=== PATIENT | male | born 1955 | race Two or more races ===

== ENCOUNTER 2017-11-04 14:08 | Emergency (ER) | payer MEDICAID, OTHER ==
[~2017-11-04] VITALS: Ht 172.7 cm; Wt 56.3 kg
[2017-11-04 17:40] VITALS: BP 152/91
== END 2017-11-04 18:00 | disposition home or self-care (01) ==
LOC: ER 14:12
DX: M19.012 Primary osteoarthritis, left shoulder (principal); M25.552 Pain in left hip; W01.0XXA Fall on same level from slipping, tripping and stumbling without subsequent striking against object, initial encounter; Y93.89 Activity, other specified; Y92.811 Bus as the place of occurrence of the external cause; Y99.8 Other external cause status
CPT/HCPCS: 73030; 73502; 93005

== ENCOUNTER 2020-09-05 11:04 | Inpatient (IN) | payer MEDICARE, MEDICAID ==
[~2020-09-05] VITALS: Ht 177.8 cm; Wt 59.0 kg
[2020-09-05 11:55] LABS: Basophils # (auto) 0 10 ^3/uL (0-0.2); Basophils % (auto) 0.1 % (0.0-2.0); Eosinophils # (auto) 0 10 ^3/uL (0-0.8); Hemoglobin 12.4 g/dL (13.5-17.5); Monocytes # (auto) 0.7 10 ^3/uL (0-1.3)
[2020-09-05 11:57] LABS: Lymphocytes # (auto) 0.6 10 ^3/uL (0.4-5.4); Lymphocytes % (auto) 5.6 % (10.0-50.0); Mean Corpuscular Hemoglobin 33.9 pg (28.0-32.0); Mean Corpuscular Hgb Conc. 35.5 g/dL (32.0-36.0); Mean Corpuscular Volume 95.5 fL (80.0-100.0); Monocytes % (auto) 6.5 % (0.0-12.0); Neutrophils # (auto) 9.7 10 ^3/uL (1.6-8.6); Neutrophils % (auto) 87.8 % (37.0-80.0); Nucleated Red Blood Cells % 0.1 %; Platelet Count (auto) 24 10^3/uL (140-450); Red Blood Cells 3.67 10^6/uL (4.5-5.90); Red Cell Distribution Width 16.8 % (11.8-14.3); White Blood Cell 11.1 10^3/uL (4.4-10.8)
[2020-09-05 12:21] LABS: Albumin 2.2 g/dL (3.4-5.0); Anion Gap 12 (5-15); Calcium 7.7 mg/dL (8.5-10.1); Carbon Dioxide 17 mmol/L (21-32); Chloride 107 mmol/L (98-107); Glucose 102 mg/dL (74-106); Magnesium 2.8 mg/dL (1.6-2.6); Potassium 3.2 mmol/L (3.5-5.1); Sodium 136 mmol/L (136-145)
[2020-09-05 12:21] LABS: Alcohol, Urine < 3.0 mg/dL (0-10); Amphetamine Screen, Urine POSITIVE (NEGATIVE); Barbiturate Scree,Urine NEGATIVE (NEGATIVE); Benzodiazephine Screen, Urine NEGATIVE (NEGATIVE); Cannabinoid Screen, Urine NEGATIVE (NEGATIVE); Cocaine Screen, Urine NEGATIVE (NEGATIVE); Opiate Scree,Urine NEGATIVE (NEGATIVE); Phencyclidine Screen, Urine NEGATIVE (NEGATIVE)
[2020-09-05 12:28] LABS: Alanine Aminotransferase 47 U/L (16-61); Alkaline Phosphatase 141 U/L (45-117); Aspartate Aminotransferase 63 U/L (15-37); BUN/Creatinine Ratio 37.3; Bilirubin, Total 3.6 mg/dL (0.2-1.0); Blood Alcohol < 3.0 mg/dL (0-5); GFR African American 30 mL/min; GFR Non-African American 25 mL/min; Total Protein 7.2 g/dL (6.4-8.2)
[2020-09-05 12:29] LABS: Urine Bacteria FEW /hpf (None Seen); Urine Blood 3+ /uL (Negative); Urine Specific Gravity 1.012 (1.001-1.035); Urine WBC 57 /hpf (0 - 3)
[2020-09-05 12:39] LABS: Blood Urea Nitrogen 101 mg/dL (7-18)
[2020-09-05] MEDS ORDERED: cefTRIAXone 1GM/50ML D5W 50 ML IV ONE (12:45)
[2020-09-05] MEDS ORDERED: NITROGLYCERIN 0.4 MG SL TAB SL PRN (15:00)
[2020-09-05] MEDS ORDERED: MORPHINE SULF INJ 2 MG/ML SYRINGE 1ML IV PRN (15:00)
[2020-09-05] MEDS ORDERED: ACETAMINOPHEN 500 MG TAB PO PRN (15:00)
[2020-09-05] MEDS ORDERED: POTASSIUM EFFERVESENT TAB 25 MEQ PO ONE (15:00)
[2020-09-05] MEDS ORDERED: ONDANSETRON HCL 4 MG/2 ML VIAL IV PRN (15:00)
[2020-09-05] MEDS ORDERED: LABETALOL HCL 5 MG/ML 4ML SYRINGE IV PRN (16:00)
[2020-09-05] MEDS: LACTULOSE 20Gm/30ML SOLN PO SCH (23:35)
[2020-09-05] MEDS: SODIUM CHLORIDE 0.9% 1,000 ML IV SCH (23:35)
[2020-09-05] MEDS: rifAXIMin 550 MG TAB PO SCH (23:35)
[2020-09-06] MEDS: LACTULOSE 20Gm/30ML SOLN PO SCH ×3 (06:37→21:52)
[2020-09-06 09:24] VITALS: BP 195/97
[2020-09-06] MEDS: METHADONE HCL 10 MG TAB PO SCH (09:29)
[2020-09-06] MEDS: rifAXIMin 550 MG TAB PO SCH ×2 (09:30→21:53)
[2020-09-06] MEDS: cefTRIAXone 1GM/50ML D5W 50 ML IV SCH (09:30)
[2020-09-06] MEDS ORDERED: PANTOPRAZOLE 40 MG/10 ML VIAL INJ IV SCH (10:00)
[2020-09-06 10:03] LABS: Basophils # (auto) 0 10 ^3/uL (0-0.2); Basophils % (auto) 0.3 % (0.0-2.0); Eosinophils # (auto) 0.2 10 ^3/uL (0-0.8); Eosinophils % (auto) 2.8 % (0.0-7.0); Hemoglobin 14.1 g/dL (13.5-17.5); Lymphocytes # (auto) 0.7 10 ^3/uL (0.4-5.4); Lymphocytes % (auto) 10.5 % (10.0-50.0); Mean Corpuscular Hemoglobin 34.2 pg (28.0-32.0); Mean Corpuscular Hgb Conc. 35.2 g/dL (32.0-36.0); Mean Corpuscular Volume 97.3 fL (80.0-100.0); Monocytes # (auto) 1.1 10 ^3/uL (0-1.3); Monocytes % (auto) 16.5 % (0.0-12.0); Neutrophils # (auto) 4.6 10 ^3/uL (1.6-8.6); Neutrophils % (auto) 69.9 % (37.0-80.0); Nucleated Red Blood Cells % 0.1 %; Platelet Count (auto) 30 10^3/uL (140-450); Red Blood Cells 4.11 10^6/uL (4.5-5.90); Red Cell Distribution Width 17.4 % (11.8-14.3); White Blood Cell 6.6 10^3/uL (4.4-10.8)
[2020-09-06 10:12] LABS: Potassium 3.5 mmol/L (3.5-5.1)
[2020-09-06 10:15] LABS: BUN/Creatinine Ratio 40.3; Bilirubin, Total 2.7 mg/dL (0.2-1.0); Total Protein 6.9 g/dL (6.4-8.2)
[2020-09-06 13:00] VITALS: BP 163/86
[2020-09-06] MEDS ORDERED: amLODIPine BESYLATE 5 MG TAB PO ONE (13:45)
[2020-09-06] MEDS ORDERED: hydrALAZINE HCL 20 MG/ML VL IV PRN (13:45)
[2020-09-06] MEDS ORDERED: ALBUMIN 5% 250 ML IV ONE (14:45)
[2020-09-06 16:57] VITALS: BP 164/79
[2020-09-06 17:03] LABS: Alcohol, Urine < 3.0 mg/dL (0-10); Amphetamine Screen, Urine NEGATIVE (NEGATIVE); Barbiturate Scree,Urine NEGATIVE (NEGATIVE); Benzodiazephine Screen, Urine NEGATIVE (NEGATIVE); Cannabinoid Screen, Urine NEGATIVE (NEGATIVE); Cocaine Screen, Urine NEGATIVE (NEGATIVE); Opiate Scree,Urine NEGATIVE (NEGATIVE); Phencyclidine Screen, Urine NEGATIVE (NEGATIVE)
[2020-09-06] MEDS ORDERED: METO25TA5 PO (17:25)
[2020-09-06] MEDS ORDERED: HYDR-4296 PO (17:25)
[2020-09-06] MEDS ORDERED: FURO20TA3 PO (17:25)
[2020-09-06] MEDS ORDERED: FERR-20 PO (17:25)
[2020-09-06] MEDS ORDERED: PRAV20TA3 PO (17:25)
[2020-09-06] MEDS ORDERED: PHEN-1143 PO (17:25)
[2020-09-06] MEDS ORDERED: AMLO-489 PO (17:25)
[2020-09-06] MEDS: SODIUM CHLORIDE 0.9% 1,000 ML IV SCH (19:06)
[2020-09-06 19:51] LABS: INR 1.35 (0.9-1.15); Partial Thromboplastin Time 30.5 sec (23.0-31.2)
[2020-09-06] MEDS: metroNIDAZOLE 500MG/100ML 100 ML IV SCH (21:53)
[2020-09-06] MEDS: MORPHINE SULF INJ 2 MG/ML SYRINGE 1ML IV PRN (21:53)
[2020-09-06 22:01] VITALS: BP 132/71
[2020-09-07 05:10] VITALS: BP 134/65
[2020-09-07] MEDS: metroNIDAZOLE 500MG/100ML 100 ML IV SCH ×3 (06:38→21:39)
[2020-09-07] MEDS: LACTULOSE 20Gm/30ML SOLN PO SCH ×3 (06:39→21:39)
[2020-09-07] MEDS: MORPHINE SULF INJ 2 MG/ML SYRINGE 1ML IV PRN ×2 (06:45→21:41)
[2020-09-07] MEDS: SODIUM CHLORIDE 0.9% 1,000 ML IV SCH (06:48)
[2020-09-07 09:00] VITALS: BP 181/79
[2020-09-07] MEDS ORDERED: amLODIPine BESYLATE 5 MG TAB PO SCH (10:00)
[2020-09-07] MEDS: amLODIPine BESYLATE 5 MG TAB PO SCH (10:23)
[2020-09-07] MEDS: PANTOPRAZOLE 40 MG TAB PO SCH (10:23)
[2020-09-07] MEDS: METHADONE HCL 10 MG TAB PO SCH (10:25)
[2020-09-07] MEDS: rifAXIMin 550 MG TAB PO SCH ×2 (10:25→21:39)
[2020-09-07] MEDS: cefTRIAXone 1GM/50ML D5W 50 ML IV SCH (10:30)
[2020-09-07] MEDS ORDERED: CIPR750T3 PO (11:14)
[2020-09-07 13:00] VITALS: BP 134/71
[2020-09-07 13:29] LABS: Basophils # (auto) 0 10 ^3/uL (0-0.2); Basophils % (auto) 0.6 % (0.0-2.0); Eosinophils # (auto) 0 10 ^3/uL (0-0.8); Hematocrit 35.3 % (41.0-53.0); Lymphocytes # (auto) 0.5 10 ^3/uL (0.4-5.4); Lymphocytes % (auto) 11.8 % (10.0-50.0); Mean Corpuscular Hemoglobin 32.9 pg (28.0-32.0); Mean Corpuscular Hgb Conc. 33.9 g/dL (32.0-36.0); Monocytes # (auto) 0.5 10 ^3/uL (0-1.3); Monocytes % (auto) 10.7 % (0.0-12.0); Neutrophils # (auto) 3.5 10 ^3/uL (1.6-8.6); Neutrophils % (auto) 76.9 % (37.0-80.0); Nucleated Red Blood Cells % 0.1 %; Platelet Count (auto) 47 10^3/uL (140-450); Red Blood Cells 3.64 10^6/uL (4.5-5.90); Red Cell Distribution Width 16.8 % (11.8-14.3); White Blood Cell 4.5 10^3/uL (4.4-10.8)
[2020-09-07 13:43] LABS: Albumin 2.2 g/dL (3.4-5.0); Calcium 7.8 mg/dL (8.5-10.1); Potassium 3.4 mmol/L (3.5-5.1)
[2020-09-07 13:45] LABS: BUN/Creatinine Ratio 44.4
[2020-09-07 13:47] LABS: Bilirubin, Total 2.4 mg/dL (0.2-1.0); Total Protein 7.1 g/dL (6.4-8.2)
[2020-09-07 17:00] VITALS: BP 129/66
[2020-09-07 22:00] VITALS: BP 130/91
[2020-09-07] MEDS ORDERED: POTASSIUM EFFERVESENT TAB 25 MEQ PO ONE (22:00)
[2020-09-08] MEDS: LACTULOSE 20Gm/30ML SOLN PO SCH ×3 (06:25→22:50)
[2020-09-08] MEDS: metroNIDAZOLE 500MG/100ML 100 ML IV SCH ×3 (06:25→22:50)
[2020-09-08] MEDS: MORPHINE SULF INJ 2 MG/ML SYRINGE 1ML IV PRN ×2 (06:25→23:51)
[2020-09-08 09:00] VITALS: BP 182/89
[2020-09-08] MEDS: METHADONE HCL 10 MG TAB PO SCH (09:03)
[2020-09-08] MEDS: PANTOPRAZOLE 40 MG TAB PO SCH (09:03)
[2020-09-08] MEDS: cefTRIAXone 1GM/50ML D5W 50 ML IV SCH (09:12)
[2020-09-08] MEDS: rifAXIMin 550 MG TAB PO SCH ×2 (09:49→22:50)
[2020-09-08] MEDS: amLODIPine BESYLATE 5 MG TAB PO SCH (09:50)
[2020-09-08 10:15] LABS: BUN/Creatinine Ratio 41.9; Calcium 8.1 mg/dL (8.5-10.1); Potassium 3.6 mmol/L (3.5-5.1)
[2020-09-08] MEDS ORDERED: METHADONE HCL 10 MG TAB PO ONE (10:30)
[2020-09-08 13:00] VITALS: BP 137/77
[2020-09-08 17:00] VITALS: BP 125/90
[2020-09-08 22:00] VITALS: BP 141/86
[2020-09-09 05:00] VITALS: BP 142/77
[2020-09-09] MEDS: metroNIDAZOLE 500MG/100ML 100 ML IV SCH ×2 (07:12→14:38)
[2020-09-09] MEDS: LACTULOSE 20Gm/30ML SOLN PO SCH ×3 (07:12→21:37)
[2020-09-09 09:00] VITALS: BP 155/88
[2020-09-09] MEDS: cefTRIAXone 1GM/50ML D5W 50 ML IV SCH (09:23)
[2020-09-09] MEDS ORDERED: D5W 5% 1,000 ML IV ONE (09:30)
[2020-09-09] MEDS: rifAXIMin 550 MG TAB PO SCH ×2 (09:42→21:37)
[2020-09-09] MEDS: PANTOPRAZOLE 40 MG TAB PO SCH (09:42)
[2020-09-09] MEDS: amLODIPine BESYLATE 5 MG TAB PO SCH (09:43)
[2020-09-09] MEDS: METHADONE HCL 10 MG TAB PO SCH (09:44)
[2020-09-09 12:40] VITALS: BP 130/80
[2020-09-09 16:36] VITALS: BP 142/91
[2020-09-09] MEDS: MORPHINE SULF INJ 2 MG/ML SYRINGE 1ML IV PRN (17:03)
[2020-09-09] MEDS: metroNIDAZOLE 500 MG TAB PO SCH (21:37)
[2020-09-09 22:00] VITALS: BP 134/79
[2020-09-10 05:00] VITALS: BP 128/80
[2020-09-10 05:56] LABS: Basophils # (auto) 0 10 ^3/uL (0-0.2); Hemoglobin 10.7 g/dL (13.5-17.5); Lymphocytes # (auto) 1.1 10 ^3/uL (0.4-5.4); Monocytes # (auto) 0.5 10 ^3/uL (0-1.3); Nucleated Red Blood Cells % 0.1 %; Red Blood Cells 3.12 10^6/uL (4.5-5.90); White Blood Cell 7.2 10^3/uL (4.4-10.8)
[2020-09-10 05:59] LABS: Basophils % (auto) 0.5 % (0.0-2.0); Eosinophils # (auto) 0.1 10 ^3/uL (0-0.8); Eosinophils % (auto) 0.9 % (0.0-7.0); Hematocrit 30.5 % (41.0-53.0); Lymphocytes % (auto) 15.6 % (10.0-50.0); Mean Corpuscular Hemoglobin 34.2 pg (28.0-32.0); Mean Corpuscular Volume 97.8 fL (80.0-100.0); Monocytes % (auto) 6.7 % (0.0-12.0); Neutrophils # (auto) 5.5 10 ^3/uL (1.6-8.6); Neutrophils % (auto) 76.3 % (37.0-80.0); Platelet Count (auto) 41 10^3/uL (140-450); Red Cell Distribution Width 16.7 % (11.8-14.3)
[2020-09-10] MEDS: LACTULOSE 20Gm/30ML SOLN PO SCH ×3 (06:13→22:18)
[2020-09-10] MEDS: metroNIDAZOLE 500 MG TAB PO SCH ×3 (06:13→22:18)
[2020-09-10 06:16] LABS: Bilirubin, Total 1.3 mg/dL (0.2-1.0)
[2020-09-10 09:00] VITALS: BP 118/77
[2020-09-10] MEDS: cefTRIAXone 1GM/50ML D5W 50 ML IV SCH (09:35)
[2020-09-10] MEDS: METHADONE HCL 10 MG TAB PO SCH (09:36)
[2020-09-10] MEDS: rifAXIMin 550 MG TAB PO SCH ×2 (09:36→22:18)
[2020-09-10] MEDS: PANTOPRAZOLE 40 MG TAB PO SCH (09:36)
[2020-09-10] MEDS: amLODIPine BESYLATE 5 MG TAB PO SCH (09:40)
[2020-09-10 12:45] VITALS: BP 138/70
[2020-09-10] MEDS: MORPHINE SULF INJ 2 MG/ML SYRINGE 1ML IV PRN (14:14)
[2020-09-10 17:00] VITALS: BP 114/70
[2020-09-10 22:00] VITALS: BP 136/79
[2020-09-10] MEDS: traMADol HCL 50 MG TAB PO PRN (22:43)
[2020-09-11 05:00] VITALS: BP 119/73
[2020-09-11] MEDS: metroNIDAZOLE 500 MG TAB PO SCH ×3 (05:36→21:47)
[2020-09-11] MEDS: LACTULOSE 20Gm/30ML SOLN PO SCH ×3 (05:36→21:46)
[2020-09-11 06:59] LABS: Calcium 7.6 mg/dL (8.5-10.1); Potassium 3.9 mmol/L (3.5-5.1)
[2020-09-11 07:01] LABS: BUN/Creatinine Ratio 25.6
[2020-09-11 09:00] VITALS: BP 120/71
[2020-09-11] MEDS: cefTRIAXone 1GM/50ML D5W 50 ML IV SCH (09:05)
[2020-09-11] MEDS: rifAXIMin 550 MG TAB PO SCH ×2 (10:00→21:47)
[2020-09-11] MEDS: PANTOPRAZOLE 40 MG TAB PO SCH (10:00)
[2020-09-11] MEDS: METHADONE HCL 10 MG TAB PO SCH (10:00)
[2020-09-11] MEDS: amLODIPine BESYLATE 5 MG TAB PO SCH (10:00)
[2020-09-11 13:00] VITALS: BP 125/71
[2020-09-11] MEDS ORDERED: FUROSEMIDE 20 MG TAB PO ONE (16:30)
[2020-09-11 16:35] VITALS: BP 139/85
[2020-09-11] MEDS: traMADol HCL 50 MG TAB PO PRN (21:53)
[2020-09-11 22:00] VITALS: BP 140/85
[2020-09-12 05:00] VITALS: BP 131/68
[2020-09-12] MEDS: metroNIDAZOLE 500 MG TAB PO SCH ×2 (05:27→14:20)
[2020-09-12] MEDS: LACTULOSE 20Gm/30ML SOLN PO SCH ×2 (05:27→14:20)
[2020-09-12 09:00] VITALS: BP 133/77
[2020-09-12] MEDS: cefTRIAXone 1GM/50ML D5W 50 ML IV SCH (09:54)
[2020-09-12] MEDS: METHADONE HCL 10 MG TAB PO SCH (09:55)
[2020-09-12] MEDS: PANTOPRAZOLE 40 MG TAB PO SCH (09:55)
[2020-09-12] MEDS: rifAXIMin 550 MG TAB PO SCH (09:56)
[2020-09-12] MEDS: amLODIPine BESYLATE 5 MG TAB PO SCH (09:56)
[2020-09-12] MEDS ORDERED: FUROSEMIDE 20 MG TAB PO SCH (10:00)
[2020-09-12] MEDS ORDERED: RIFA550T PO (12:24)
[2020-09-12] MEDS ORDERED: TAM04C PO (12:24)
[2020-09-12] MEDS ORDERED: LACT10SO3 PO (12:24)
[2020-09-12 13:00] VITALS: BP 126/78
== END 2020-09-12 15:53 | disposition home health service (06) | DRG 441 ==
LOC: ER 11:04 → TELE 14:46 → TELE-WESTW 09-06 08:40 → WEST WING 09-08 12:48
PROVIDERS: ADMIT Nurse Practitioner Acute Care; ATTEND Internal Medicine
DX: K72.90 Hepatic failure, unspecified without coma (principal); K85.90 Acute pancreatitis without necrosis or infection, unspecified; N17.0 Acute kidney failure with tubular necrosis; K92.0 Hematemesis; N30.01 Acute cystitis with hematuria; N18.4 Chronic kidney disease, stage 4 (severe); R64 Cachexia; E87.0 Hyperosmolality and hypernatremia; Z68.1 Body mass index [BMI] 19.9 or less, adult; K80.51 Calculus of bile duct without cholangitis or cholecystitis with obstruction; Z20.822 Contact with and (suspected) exposure to COVID-19; D63.8 Anemia in other chronic diseases classified elsewhere; I12.9 Hypertensive chronic kidney disease with stage 1 through stage 4 chronic kidney disease, or unspecified chronic kidney disease; N40.0 Benign prostatic hyperplasia without lower urinary tract symptoms; K82.8 Other specified diseases of gallbladder; E87.6 Hypokalemia; G89.4 Chronic pain syndrome; B19.20 Unspecified viral hepatitis C without hepatic coma; D69.59 Other secondary thrombocytopenia; E88.09 Other disorders of plasma-protein metabolism, not elsewhere classified; E86.0 Dehydration; Z87.440 Personal history of urinary (tract) infections; Z79.891 Long term (current) use of opiate analgesic; Z79.01 Long term (current) use of anticoagulants; Z79.899 Other long term (current) drug therapy
CPT/HCPCS: 36415; 70450; 71046; 74176; 74181; 80048; 80053; 80307; 80320; 81001; 82140; 82247; 82270; 83690; 83735; 84075; 84484; 85025; 85049; 85610; 85730; 86850; 86900; 86901; 87040; 87086; 87426; 93005; C9113; G0378; J0696; J3490

== ENCOUNTER 2024-05-05 10:08 | Inpatient (IN) | payer MEDICARE, MEDICAID ==
[~2024-05-05] VITALS: Ht 164.8 cm; Wt 64.8 kg
[2024-05-05] VITALS (7 sets, daily range): BP systolic 136–164; BP diastolic 43–76; PULSE 13–92; RESP 11–16; TEMP 97.6–98.4; O2SAT 95
[~2024-05-05 10:08] MED LIST: AMLO1TAB22 PO; CIPR750T3 PO; FERR325T24 PO; FURO20TA3 PO; LACT10SO3 PO; RIFA550T PO; TAMS-35 PO
--- NOTE | 2024-05-05 10:24 | ED.PDOC ---
Musculoskeletal HPI Comments 69 year old male REX presents to the ED with chief complaint of right leg wound. EMS reports that family member noticed a wound to the patient's right leg that has been worsening over time and appears infected. Patient relays that he has also been experiencing shakiness and weakness recently. Patient states the wound has worsened for the past 3 months when it had first appeared on his right lower leg. Patient denies any numbness, weakness, fever, chills, N/V, SOB, or chest pain. Chief Complaint: Lower Extremity Time Seen by MD: 10:21 Primary Care Provider: NONE Reviewed Notes: Nurses Notes, Marketing Campaign Analyst Notes, Medications, Allergies Allergies: Coded Allergies: NO KNOWN ALLERGIES (Unverified , 11/04/17) Home Meds Active Scripts Tamsulosin Hcl (Flomax) 0.4 Mg Cap, 1 CAP PO QPM, #30 CAP 0 Refills Prov:CURTIS PARRISH MD 09/12/20 Rifaximin (Xifaxan) 550 Mg Tab, 550 MG PO BID for 30 Days, #60 TAB Prov:CURTIS PARRISH MD 09/12/20 Lactulose (Lactulose) 10 Gm/15 Ml Pratibha, 30 ML PO BID, #2000 ML Prov:CURTIS PARRISH MD 09/12/20 Reported Medications Ciprofloxacin Hcl (Ciprofloxacin Hcl) 750 Mg Tab, 1 TAB PO BID for 10 Days 09/07/20 Amlodipine Besylate (Amlodipine Besylate) 5 Mg Tab, 10 MG PO DAILY for 30 Days, MG 09/06/20 Ferrous Sulfate (Ferrous Sulfate) 325 Mg Tab, 325 MG PO BIDWM for 30 Days, MG 09/06/20 Furosemide (Furosemide) 20 Mg Tab, 20 MG PO DAILY 09/06/20 Information Source: Patient, Emergency Med Personnel Mode of Arrival: EMS Location: Right Extremity Location: Leg Timing: Months Prehospital treatment: None Severity: Moderate Able to Move Extremity: Yes Bear Weight: Fully Pain: Moderate Mechanism: Spontaneous Circumstances: Preceding Wound Onset of Symptoms: Spontaneous Symptoms: Pain DVT Risk Factors: NONE Last Tetanus: Unknown Past Medical History PAST MEDICAL HISTORY: HTN, Liver Surgical History: Appendectomy Family History Family History: Reviewed,noncontributory to illness Social History Smoker: Cigarettes Alcohol: Occasionally Drugs: Denies Drug Use Lives In: Home Constitutional: reports: weakness; denies: chills, diaphoresis, fatigue, fever, malaise, sweats, others EENTM: denies: blurred vision, double vision, ear bleeding, ear discharge, ear drainage, ear pain, ear ringing, eye pain, eye redness, hearing loss, mouth pain, mouth swelling, nasal discharge, nose bleeding, nose congestion, nose pain, photophobia, tearing, throat pain, throat swelling, voice changes, others Respiratory: denies: cough, hemoptysis, orthopnea, SOB at rest, shortness of breath, SOB with excertion, stridor, wheezing, others Cardiovascular: denies: chest pain, dizzy spells, diaphoresis, Dyspnea on exertion, edema, irregular heart beat, left arm pain, lightheadedness, palpitations, PND, syncope, others Gastrointestinal: denies: abdomen distended, abdominal pain, blood streaked bowels, constipated, diarrhea, dysphagia, difficulty swallowing, hematemesis, melena, nausea, poor appetite, poor fluid intake, rectal bleeding, rectal pain, vomiting, others Genitourinary: denies: burning, dysuria, flank pain, frequency, hematuria, incontinence, penile discharge, penile sore, pain, testicle pain, testicle swelling, urgency, others Neurological: denies: dizziness, fainting, headache, left sided numbness, left sided weakness, numbness, paresthesia, pre-existing deficit, right sided numbness, right sided weakness, seizure, speech problems, tingling, tremors, weakness, others Musculoskeletal: denies: back pain, gout, joint pain, joint swelling, muscle pain, muscle stiffness, neck pain, others Integumetry: reports: wounds (Rt lower leg wound); denies: bruises, change in color, change in hair/nails, dryness, laceration, lesions, lumps, rash, others Allergic/Immunocompromised: denies: Difficulty Healing, Frequent Infections, Hives, Itching, others Hematologic/Lymphatic: denies: anemia, blood clots, easy bleeding, easy bruising, swollen glands, others Endocrine: denies: excessive hunger, excessive sweating, excessive thirst, excessive urination, flushing, intolerance to cold, intolerance to heat, unexplained weight gain, unexplained weight loss, others Psychiatric: denies: anxiety, bipolar disorder, depression, hopeless, panic disorder, schizophrenia, sleepless, suicidal, others All Other Systems: Reviewed and Negative Physical Exam General Appearance: Moderate Distress, Normal HEENT: Normal ENT Inspection, PERRL/EOMI Neck: Full Range of Motion, Non-Tender, Normal, Normal Inspection Respiratory: Chest Non-Tender, Lungs Clear, No Accessory Muscle Use, No Respiratory Distress, Normal Breath Sounds Cardiovascular: No Edema, No JVD, No Murmur, No Gallop, Normal Peripheral Pulses, Regular Rate/Rhythm Breast Exam: Deferred Gastrointestinal: No Organomegaly, Non Tender, No Pulsatile Mass, Normal Bowel Sounds, Soft Genitalia: Deferred Pelvic: Deferred Rectal: Deferred Extremities: No calf tenderness, Normal capillary refill, Normal range of motion, Non-tender, No pedal edema Musculoskeletal : Apperance: Normal Neurologic: Alert, operator maintainer II-XII nml as Tested, No Motor Deficits, Normal Affect, Normal Mood, No Sensory Deficits Cerebellar Function: NOT DONE Reflexes: NOT DONE Skin: Dry, Normal Color, Warm, Wounds (Right lower extremity) Peripheral Pulses: 3+ Radial (R), 3+ Radial (L) Lymphatic: No Adenopathy Was a procedure done? Was a procedure done?: No Differential Diagnosis EXT Differential Diagnosis: Cellulitis, Sprain, Strain X-Ray, Labs, Meds, VS Vital Signs Date Time Temp Pulse Resp B/P (MAP) Pulse Ox O2 Delivery O2 Flow Rate FiO2 05/05/24 12:12 92 16 100 Room Air 05/05/24 12:12 98.4 92 16 101/65 (77) 100 98.4 05/05/24 10:28 97.8 72 18 159/74 (102) 100 97.8 05/05/24 10:28 97.8 72 18 159/74 (102) 100 05/05/24 10:28 Room Air* 0 21 Lab Test 05/05/24 12:18 05/05/24 11:01 Range/Units White Blood Count 5.1 4.4-10.8 10^3/uL Red Blood Count 1.62 L 4.5-5.90 10^6/uL Hemoglobin 5.0 *L 13.5-17.5 g/dL Hematocrit 15.5 L 41.0-53.0 % Mean Corpuscular Volume 95.4 80.0-100.0 fL Mean Corpuscular Hemoglobin 30.9 28.0-32.0 pg Mean Corpuscular Hemoglobin Concent 32.4 32.0-36.0 g/dL Red Cell Distribution Width 21.9 H 11.8-14.3 % Platelet Count 113 L 140-450 10^3/uL Mean Platelet Volume 10.0 6.9-10.8 fL Neutrophils (%) (Auto) 68.5 37.0-80.0 % Lymphocytes (%) (Auto) 21.4 10.0-50.0 % Monocytes (%) (Auto) 9.7 0.0-12.0 % Eosinophils (%) (Auto) 0.1 0.0-7.0 % Basophils (%) (Auto) 0.3 0.0-2.0 % Neutrophils # (Auto) 3.5 1.6-8.6 10 ^3/uL Lymphocytes # (Auto) 1.1 0.4-5.4 10 ^3/uL Monocytes # (Auto) 0.5 0-1.3 10 ^3/uL Eosinophils # (Auto) 0 0-0.8 10 ^3/uL Basophils # (Auto) 0 0-0.2 10 ^3/uL Nucleated Red Blood Cells 0.1 % Platelet Estimate Decreased Hypochromasia (manual) Moderate Anisocytosis (manual) Slight Target Cells Moderate Tear Drop Cells Few Sodium Level 137 136-145 mmol/L Potassium Level 3.3 L 3.5-5.1 mmol/L Chloride Level 107 98-107 mmol/L Carbon Dioxide Level 19 L 20-31 mmol/L Anion Gap 11 5-15 Blood Urea Nitrogen 94 *H 9-23 mg/dL Creatinine 1.48 H 0.700-1.30 mg/dL Glomerular Filtration Rate Calc 51 >90 mL/min BUN/Creatinine Ratio 63.5 H 10.0-20.0 Serum Glucose 128 H 74-106 mg/dL Calcium Level 8.3 L 8.7-10.4 mg/dL Troponin I High Sensitivity 54 </=54 ng/L Current Medications Medications (Trade) Dose Ordered Sig/Raulito Route Start Time Stop Time Status Last Admin Sodium Chloride 1,000 ml @ 1,000 mls/hr Q1H ONCE IV 05/05/24 10:30 05/05/24 11:29 DC 05/05/24 12:09 Ceftriaxone Sodium 50 ml @ 100 mls/hr ONCE ONCE IV 05/05/24 10:30 05/05/24 10:59 DC 05/05/24 12:19 Clindamycin Phosphate 50 ml @ 50 mls/hr ONCE ONCE IV 05/05/24 13:45 05/05/24 14:49 DC 05/05/24 14:36 Patient alert. Generalized weakness. Has a wound in the right lower extremity. Vitals stable. On examination there is mild swelling around the right ankle foot. Wound healing but possibly will need antibiotics. Wound evaluation. Surgical consultation. Peripheral vascular disease causing wound to heal slowly. Possibly need wound VAC. Reviewed his previous visit. Explained to the patient. Continue cardiac monitoring. Chest XR: FINDINGS: Lines and Tubes: None Lungs: Clear Pleura: No effusion. No pneumothorax. Cardiomediastinal contours: Unremarkable Bones: Unremarkable IMPRESSION: No acute disease. Time of 1ST Reevaluation: 11:21 Reevaluation 1ST: Unchanged Patient Education/Counseling: Diagnosis, Treatment Family Education/Counseling: No Family Present Additional Information I reviewed the following notes from patient's past medical encounters: 09/05/20 for toxic metabolic encephalopathy The following tests were ordered, and results were reviewed by me: I reviewed and agreed with the following test results read by other providers: Additional Information was gathered from interviewing the following independent historians: EMS I discussed treatment and results with medical personnel. Departure 1 Departure Time of Disposition: 10:37 Impression: Primary Impression: Cellulitis Qualified Codes: L03.115 - Cellulitis of right lower limb Additional Impression: Osteomyelitis Qualified Codes: M86.9 - Osteomyelitis, unspecified Disposition: ADMITTED INPATIENT Admit to: Med Surg Condition: Guarded Critical Care Note Critical Care Time?: No Stability Stability form required: No Heart Score Heart Score: Heart Score Response (Comments) Value History N/A 0 EKG N/A 0 Age N/A 0 Risk Factors N/A 0 Troponin N/A 0 Total 0 I personally scribed for CHEKO ELISE MD ([email or web address]) on 05/05/24 at 10:24. Electronically submitted by Lance Avila ([email or web address]). I personally scribed for CHEKO ELISE MD ([email or web address]) on 05/05/24 at 11:21. Electronically submitted by Lance Avila ([email or web address]). CHEKO ELISE MD May 05, 2024 10:24
[2024-05-05] MEDS ORDERED: CLINDAMYCIN 300MG IV 50 ML IV ONE (10:30)
--- NOTE | 2024-05-05 11:00 | DVH ---
CHEST RADIOGRAPH Indication: sob Technique: Single frontal view of the chest was obtained COMPARISON: None FINDINGS: Lines and Tubes: None Lungs: Clear Pleura: No effusion. No pneumothorax. Cardiomediastinal contours: Unremarkable Bones: Unremarkable IMPRESSION: No acute disease.
[2024-05-05 11:23] LABS: Sodium 137 mmol/L (136-145)
[2024-05-05 11:25] LABS: Anion Gap 11 (5-15)
[2024-05-05 11:30] LABS: BUN/Creatinine Ratio 63.5 (10.0-20.0)
[2024-05-05 11:48] LABS: Blood Urea Nitrogen 94 mg/dL (9-23); Calcium 8.3 mg/dL (8.7-10.4); Carbon Dioxide 19 mmol/L (20-31); Chloride 107 mmol/L (98-107); Glucose 128 mg/dL (74-106); Potassium 3.3 mmol/L (3.5-5.1)
[2024-05-05] MEDS: SODIUM CHLORIDE 0.9% 1,000 ML IV ONE (12:09)
[2024-05-05] MEDS: cefTRIAXone 1GM/50ML D5W 50 ML IV ONE (12:19)
[2024-05-05 12:29] LABS: Basophils # (auto) 0 10 ^3/uL (0-0.2); Eosinophils # (auto) 0 10 ^3/uL (0-0.8); Eosinophils % (auto) 0.1 % (0.0-7.0); Hematocrit 15.5 % (41.0-53.0); Lymphocytes # (auto) 1.1 10 ^3/uL (0.4-5.4); Monocytes # (auto) 0.5 10 ^3/uL (0-1.3); Neutrophils # (auto) 3.5 10 ^3/uL (1.6-8.6); Nucleated Red Blood Cells % 0.1 %; Platelet Count (auto) 113 10^3/uL (140-450); Red Blood Cells 1.62 10^6/uL (4.5-5.90); White Blood Cell 5.1 10^3/uL (4.4-10.8)
[2024-05-05 12:30] LABS: Basophils % (auto) 0.3 % (0.0-2.0); Lymphocytes % (auto) 21.4 % (10.0-50.0); Mean Corpuscular Hemoglobin 30.9 pg (28.0-32.0); Mean Corpuscular Hgb Conc. 32.4 g/dL (32.0-36.0); Mean Corpuscular Volume 95.4 fL (80.0-100.0); Monocytes % (auto) 9.7 % (0.0-12.0); Neutrophils % (auto) 68.5 % (37.0-80.0)
[2024-05-05 12:33] LABS: Red Cell Distribution Width 21.9 % (11.8-14.3)
[2024-05-05 12:51] LABS: Hypochromia Moderate
[2024-05-05 12:52] LABS: Anisocytosis Slight; Platelet Estimate Decreased; Target Cell MODERATE; Tear Drop Cells FEW
[2024-05-05] MEDS: CLINDAMYCIN 300MG IV 50 ML IV ONE (14:36)
[2024-05-05] MEDS ORDERED: VANCOMYCIN PER PHARMACY 0 MG IV SCH (16:00)
[2024-05-05] MEDS ORDERED: MORPHINE SULFATE INJ 2 MG/ml SYRG IV PRN (16:00)
[2024-05-05] MEDS ORDERED: NITROGLYCERIN 0.4 MG SL TAB SL PRN (16:00)
--- NOTE | 2024-05-05 16:11 | DVHHP2 ---
History of Present Illness Reason for Visit: Right leg wound History of Present Illness The patient was a 69-year-old male presenting to the emergency room with complaints of wound to his right lower extremity, dizziness, near-syncope, as well as generalized weakness. Patient also reports having melena stools for the past 3-4 days. Significant history of the patient includes cirrhosis, diabetes mellitus, illicit drug use, alcoholism, as well as primary hypertension. Cardiovascular: HTN Hepatobiliary: Cirrhosis Renal/: Chronic renal insuff Endocrine: Diabetes Dermatology: Cellulitis Past Surgical History: None Family History: None Smoke: No ALCOHOL: occassional Drugs: None Lives: with Family Review of Systems Constitutional: Yes: Weakness, Malaise, Other (Near-syncope) Eyes: No: Pain, Vision change, Conjunctivae inflammation, Eyelid inflammation, Other, Redness ENT: No: Ear pain, Ear discharge, Nose pain, Nose discharge, Nose congestion, Mouth pain, Mouth swelling, Throat pain, Throat swelling, Other Respiratory: No: Cough, Dry, Shortness of breath, SOB with excertion, Wheezing, Hemoptysis, Pleuritic Pain, Sputum, Wheezing, Other Gastrointestinal: Melena; No: Nausea, Vomiting, Abdominal Pain, Diarrhea, Constipation, Hematochezia, Other Genitourinary: No Dysuria, No Frequency, No Incontinence, No Hematuria, No Retention, No Other Musculoskeletal: leg pain Skin: Other (Right lower extremity wound) Neurological: Weakness; No: Numbness, Incoordination, Change in speech, Conf usion, Seizures, Other Allergies: Coded Allergies: NO KNOWN ALLERGIES (Unverified , 11/04/17) Exam Vital Signs Vital Signs Date Time Temp Pulse Resp B/P (MAP) Pulse Ox O2 Delivery O2 Flow Rate FiO2 05/05/24 12:12 92 16 100 Room Air 05/05/24 12:12 98.4 101/65 (77) 98.4 05/05/24 10:28 0 21 General Appearance: Alert, Oriented X3, Cooperative, moderate distress HEENT: Atraumatic, PERRLA Respiratory: Clear to auscultation Cardiovascular: Normal S1, Normal S2 Abdominal: Normal bowel sounds, Soft, No tenderness, No hepatospenomegaly Extremities: No clubbing, No cyanosis, No edema, Normal pulses, No tenderness/swelling Skin: No rashes (Right lower extremity abscess) Neuro: Normal gait, Normal speech, Sensation intact, Cranial nerves 3-12 NL Psych/Mental Status: Mental status NL, Mood NL Labs/Xrays Labs Test 05/05/24 12:18 05/05/24 11:01 Range/Units White Blood Count 5.1 4.4-10.8 10^3/uL Red Blood Count 1.62 L 4.5-5.90 10^6/uL Hemoglobin 5.0 *L 13.5-17.5 g/dL Hematocrit 15.5 L 41.0-53.0 % Mean Corpuscular Volume 95.4 80.0-100.0 fL Mean Corpuscular Hemoglobin 30.9 28.0-32.0 pg Mean Corpuscular Hemoglobin Concent 32.4 32.0-36.0 g/dL Red Cell Distribution Width 21.9 H 11.8-14.3 % Platelet Count 113 L 140-450 10^3/uL Mean Platelet Volume 10.0 6.9-10.8 fL Neutrophils (%) (Auto) 68.5 37.0-80.0 % Lymphocytes (%) (Auto) 21.4 10.0-50.0 % Monocytes (%) (Auto) 9.7 0.0-12.0 % Eosinophils (%) (Auto) 0.1 0.0-7.0 % Basophils (%) (Auto) 0.3 0.0-2.0 % Neutrophils # (Auto) 3.5 1.6-8.6 10 ^3/uL Lymphocytes # (Auto) 1.1 0.4-5.4 10 ^3/uL Monocytes # (Auto) 0.5 0-1.3 10 ^3/uL Eosinophils # (Auto) 0 0-0.8 10 ^3/uL Basophils # (Auto) 0 0-0.2 10 ^3/uL Nucleated Red Blood Cells 0.1 % Platelet Estimate Decreased Hypochromasia (manual) Moderate Anisocytosis (manual) Slight Target Cells Moderate Tear Drop Cells Few Sodium Level 137 136-145 mmol/L Potassium Level 3.3 L 3.5-5.1 mmol/L Chloride Level 107 98-107 mmol/L Carbon Dioxide Level 19 L 20-31 mmol/L Anion Gap 11 5-15 Blood Urea Nitrogen 94 *H 9-23 mg/dL Creatinine 1.48 H 0.700-1.30 mg/dL Glomerular Filtration Rate Calc 51 >90 mL/min BUN/Creatinine Ratio 63.5 H 10.0-20.0 Serum Glucose 128 H 74-106 mg/dL Calcium Level 8.3 L 8.7-10.4 mg/dL Troponin I High Sensitivity 54 </=54 ng/L Assessment/Plan Assessment/Plan Impression: -GI bleed, severe anemia -thrombocytopenia -right lower extremity cellulitis/abscess -cirrhosis of liver -primary hypertension -diabetes mellitus -hypokalemia -moderate protein malnutrition -probable acute kidney injury, vasomotor nephropathy Plan: -admit to telemetry unit -GI consultation -clear liquid diet -CT scan of right lower extremity -antibiotic therapy: Rocephin, vancomycin -regular insulin sliding scale -PPI -stool for occult blood -PRBC transfusion x2 -repeat labs in a.m. Critical care time spent with patient discussing and formulating plan of care: 40 minutes. This does not include time spent performing procedures. This medical document was created using an electronic medical record system with [employer] dictation system. Although this document has been carefully reviewed, there may still be some phonetic and typographical errors. These areas are purely typographical due to imperfections of the software programs, and do not reflect any compromise in the patient's medical care. Plan discussed with: Patient, Other (RN) My Orders Orders - MUSTAPHA JOHNSON [employer]ENT[employer] CAPITALIST Procedure Category Date Status Time Admit ADMIT 05/05/24 Verified 16:00 Nitroglycerin [facility] 05/05/24 Verified Sublingual (Ntrostat 16:00 Morphine Sulfate [facility] 05/05/24 Verified Injection 16:00 Stat Ekg For Chest [facility] 05/05/24 Verified Pain 16:00 Notify Of Changes [facility] 05/05/24 Verified From Base 16:00 Farm Equipment Assembler For [facility] 05/05/24 Verified 24 Hours 16:00 Emergency Dysrhythmia [facility] 05/05/24 Verified Protocol 16:00 Rhythm Strips Once [facility] 05/05/24 Verified Every Shift 16:00 Oxygen By Nasal RT 05/05/24 Verified Cannula 16:00 Vancomycin Per [facility] 05/05/24 Verified Pharmacy 16:00 Ceftriaxone Ivpb [facility] 05/06/24 Verified Rocephin 09:00 Obtain Consent For: ORDERS 05/05/24 Verified 16:00 Packedcells -Active [facility] 05/05/24 Verified Bleeding 16:00 Type And Screen [facility] 05/05/24 Verified 16:00 Iron Panel LAB 05/05/24 Verified 16:00 Reticulocyte Count LAB 05/05/24 Verified 16:00 Ferritin LAB 05/05/24 Verified 16:00 Lactate Dehydrogenase LAB 05/05/24 Verified 16:00 Vitamin B12 LAB 05/05/24 Verified 16:00 Folate (Folic Acid) LAB 05/05/24 Verified 16:00 Pantoprazole [facility] 05/05/24 Verified (Protonix) 22:00 * Gi Dvh Icer Air Conditioning CONS 05/05/24 Verified 16:00 Clear Liq Diet DIET 05/05/24 Verified Dinner Wound Culture W/ Gs DANNY 05/05/24 Verified 16:00 Ct L Tib Fib Wo CT 05/05/24 Verified Contrast 16:00 Blood Culture DANNY 05/05/24 Verified 16:00 Complete Blood Count LAB 05/06/24 Verified 04:00 Comprehensive LAB 05/06/24 Verified Metabolic Panel 04:00 PTPTT LAB 05/06/24 Verified 04:00 Date of Service: May 05, 2024 Billing Provider: MUSTAPHA JOHNSON NP Common Visit Codes: [id number] CARE 30-74 MIN MUSTAPHA JOHNSON NP May 05, 2024 16:11
--- NOTE | 2024-05-05 17:03 | DVH ---
INDICATION: Abscess COMPARISON: None TECHNIQUE: CT of the right was performed without contrast. Volume transverse images were obtained a nd reconstructed in multiple planes using bone and soft tissue algorithms. CONTRAST: None Radiation Dose Information: CT Dose: CTDI volume is 25.18 mGy. Dose-length product is 1423.62 mGy*cm FINDINGS: The alignment is normal. The joint spaces are normal. There is no fracture, dislocation, or focal osseous lesions. Subcutaneous edema from the right knee right foot without drainable fluid collections. IMPRESSION: Subcutaneous edema with no focal drainable fluid collections. Irregularity to the skin surface over the medial distal tibia.
[2024-05-05 17:44] LABS: % Iron Saturation 6.2 % (20-55)
[2024-05-05 18:08] LABS: Ferritin 60.6 ng/mL (22-322); Folate (Folic Acid) 17.52 ng/mL (>5.38)
[2024-05-05] MEDS: HYDROcodone-ACET 7.5/325MG TAB PO PRN (20:30)
[2024-05-05] MEDS: PANTOPRAZOLE 40 MG/10 ML VIAL INJ IV SCH (22:00)
--- NOTE | 2024-05-05 22:33 | DVHINCON2 ---
Date of service: May 05, 2024 Referring Physician Luke Moreno Reason for Consultation Melena and anemia History of Present Illness The patient was a 69-year-old male presenting to the emergency room with complaints of wound to his right lower extremity, dizziness, near-syncope, as well as generalized weakness. Patient also reports having melena stools for the past 3-4 days. Significant history of the patient includes cirrhosis, diabetes mellitus, illicit drug use, alcoholism, as well as primary hypertension. Patient was found to have a hemoglobin of 5.0 and 2 units of PRBC have been ordered. 1 unit PRBCs being transfused Past Medical History Cardiovascular: HTN Hepatobiliary: Cirrhosis; Hep C Renal/: Chronic renal insuff Endocrine: Diabetes Dermatology: Cellulitis Family History: Patient reports no known family medical history. Allergies: Coded Allergies: NO KNOWN ALLERGIES (Unverified , 11/04/17) Home Meds Active Scripts Tamsulosin Hcl (Flomax) 0.4 Mg Cap, 1 CAP PO QPM, #30 CAP 0 Refills Prov:CURTIS PARRISH MD 09/12/20 Rifaximin (Xifaxan) 550 Mg Tab, 550 MG PO BID for 30 Days, #60 TAB Prov:CURTIS PARRISH MD 09/12/20 Lactulose (Lactulose) 10 Gm/15 Ml Pratibha, 30 ML PO BID, #2000 ML Prov:CURTIS PARRISH MD 09/12/20 Reported Medications Ciprofloxacin Hcl (Ciprofloxacin Hcl) 750 Mg Tab, 1 TAB PO BID for 10 Days 09/07/20 Amlodipine Besylate (Amlodipine Besylate) 5 Mg Tab, 10 MG PO DAILY for 30 Days, MG 09/06/20 Ferrous Sulfate (Ferrous Sulfate) 325 Mg Tab, 325 MG PO BIDWM for 30 Days, MG 09/06/20 Furosemide (Furosemide) 20 Mg Tab, 20 MG PO DAILY 09/06/20 Current Medications Current Medications Medications (Trade) Dose Ordered Sig/Raulito Route PRN Reason Start Time Stop Time Status Last Admin Nitroglycerin (Ntrostat Sublingual) 0.4 mg Q5MINP PRN SL FOR CHEST PAIN 05/05/24 16:00 Morphine Sulfate 2 mg Q30M PRN IV FOR CHEST PAIN 05/05/24 16:00 Vancomycin HCl 0 ml @ 0 mls/hr UD IV 05/05/24 16:00 Ceftriaxone Sodium 50 ml @ 100 mls/hr DAILY@09 IV 05/06/24 09:00 Pantoprazole Sodium (Protonix) 40 mg BID IV 05/05/24 22:00 Acetaminophen/ Hydrocodone Bitart ([place] 7.5/325MG Tab) 1 tab Q8HP PRN PO MILD PAIN (1-3 PAIN SCALE) 05/05/24 20:30 05/05/24 20:30 Vital Signs Vital Signs Date Time Temp Pulse Resp B/P (MAP) Pulse Ox O2 Delivery O2 Flow Rate FiO2 05/05/24 21:16 98.2 92 14 164/61 98.2 05/05/24 19:45 95 05/05/24 19:45 Room Air* 0 21 Physical Exam Hemodynamically stable, full physical examination deferred Labs/Diagnostic Data Labs Test 05/05/24 17:00 05/05/24 12:18 05/05/24 11:01 Range/Units Reticulocyte Count (auto) 6.91 H 0.5-1.5 % Iron Level 21 L 65-175 ug/dL Total Iron Binding Capacity 338 250-425 ug/dL Percent Iron Saturation 6.2 L 20-55 % Ferritin 60.6 22-322 ng/mL Lactate Dehydrogenase 413 H 120-246 U/L Vitamin B12 Level 1965 H 211-911 pg/mL Folic Acid 17.52 >5.38 ng/mL White Blood Count 5.1 4.4-10.8 10^3/uL Red Blood Count 1.62 L 4.5-5.90 10^6/uL Hemoglobin 5.0 *L 13.5-17.5 g/dL Hematocrit 15.5 L 41.0-53.0 % Mean Corpuscular Volume 95.4 80.0-100.0 fL Mean Corpuscular Hemoglobin 30.9 28.0-32.0 pg Mean Corpuscular Hemoglobin Concent 32.4 32.0-36.0 g/dL Red Cell Distribution Width 21.9 H 11.8-14.3 % Platelet Count 113 L 140-450 10^3/uL Mean Platelet Volume 10.0 6.9-10.8 fL Neutrophils (%) (Auto) 68.5 37.0-80.0 % Lymphocytes (%) (Auto) 21.4 10.0-50.0 % Monocytes (%) (Auto) 9.7 0.0-12.0 % Eosinophils (%) (Auto) 0.1 0.0-7.0 % Basophils (%) (Auto) 0.3 0.0-2.0 % Neutrophils # (Auto) 3.5 1.6-8.6 10 ^3/uL Lymphocytes # (Auto) 1.1 0.4-5.4 10 ^3/uL Monocytes # (Auto) 0.5 0-1.3 10 ^3/uL Eosinophils # (Auto) 0 0-0.8 10 ^3/uL Basophils # (Auto) 0 0-0.2 10 ^3/uL Nucleated Red Blood Cells 0.1 % Platelet Estimate Decreased Hypochromasia (manual) Moderate Anisocytosis (manual) Slight Target Cells Moderate Tear Drop Cells Few Sodium Level 137 136-145 mmol/L Potassium Level 3.3 L 3.5-5.1 mmol/L Chloride Level 107 98-107 mmol/L Carbon Dioxide Level 19 L 20-31 mmol/L Anion Gap 11 5-15 Blood Urea Nitrogen 94 *H 9-23 mg/dL Creatinine 1.48 H 0.700-1.30 mg/dL Glomerular Filtration Rate Calc 51 >90 mL/min BUN/Creatinine Ratio 63.5 H 10.0-20.0 Serum Glucose 128 H 74-106 mg/dL Calcium Level 8.3 L 8.7-10.4 mg/dL Troponin I High Sensitivity 54 </=54 ng/L MRCP 2020 IMPRESSION: 1. Persistent intra and extrahepatic biliary ductal dilatation. Previously identified sub centimeter CBD stone is no longer visualized. 2. Less distention of the gallbladder. 3. Acute edematous/interstitial pancreatitis. No peripancreatic organized fluid collection. 4. Slightly increased small volume ascites. 5. Cirrhosis. 6. Splenomegaly. 7. Slightly increased minimal left pleural effusion. Problems(with codes): (1) Near syncope (2) UGI bleed (3) Hematemesis (4) Acute renal failure (5) Cellulitis (6) Hepatic encephalopathy Plan/Recommendation PLAN Transfuse 2 units PRBC IV Protonix 40 mg q.12 hours Continue to monitor labs Patient has been started on IV antibiotics for suspected cellulitis of the lower extremity Get complete abdominal ultrasound because the patient has prior history of cirrhosis splenomegaly EGD will be scheduled once pt is medically stabilized and transfused If patient shows signs of active bleeding we will start him on IV octreotide drip Plan discussed with: Other (None) ONEIDA MI MD May 05, 2024 22:33
[2024-05-06] VITALS (13 sets, daily range): BP systolic 127–199; BP diastolic 64–97; PULSE 55–82; RESP 16–22; TEMP 97.3–98.4; O2SAT 91–100
[2024-05-06] MEDS: VANCOMYCIN 1.5GM/300ML 300 ML IV ONE (02:28)
[2024-05-06] MEDS ORDERED: METH-1214 GT (02:42)
[2024-05-06] MEDS: hydrALAZINE HCL 20 MG/ML VL IV ONE (03:11)
[2024-05-06 07:09] LABS: Anion Gap 9 (5-15); BUN/Creatinine Ratio 46.7 (10.0-20.0); Glucose 93 mg/dL (74-106); Sodium 140 mmol/L (136-145)
[2024-05-06 07:10] LABS: Total Protein 5.8 g/dL (5.7-8.2)
[2024-05-06 07:11] LABS: Alanine Aminotransferase 197 U/L (7-40); Albumin 2.6 g/dL (3.2-4.8); Alkaline Phosphatase 209 U/L (46-116); Aspartate Aminotransferase 285 U/L (13-40); Bilirubin, Total 1.9 mg/dL (0.2-1.0); Blood Urea Nitrogen 57 mg/dL (9-23); Calcium 8.1 mg/dL (8.7-10.4); Carbon Dioxide 19 mmol/L (20-31); Chloride 112 mmol/L (98-107); Potassium 3.3 mmol/L (3.5-5.1)
[2024-05-06] MEDS: LABETALOL HCL 20 MG/4 ML VL IV PRN (09:17)
[2024-05-06] MEDS: cefTRIAXone 1GM/50ML D5W 50 ML IV SCH (09:18)
[2024-05-06 09:54] LABS: Hematocrit 28.7 % (41.0-53.0); Mean Corpuscular Hemoglobin 30.3 pg (28.0-32.0); Mean Corpuscular Hgb Conc. 31.4 g/dL (32.0-36.0); Mean Corpuscular Volume 96.3 fL (80.0-100.0); Platelet Count (auto) 96 10^3/uL (140-450); Red Blood Cells 2.98 10^6/uL (4.5-5.90); Red Cell Distribution Width 20.1 % (11.8-14.3); White Blood Cell 5.7 10^3/uL (4.4-10.8)
[2024-05-06 09:56] LABS: INR 1.46 (0.9-1.15); Partial Thromboplastin Time 27.1 SEC (24.5-34.5); Prothrombin Time 14.9 sec (9.3-11.8)
[2024-05-06 09:58] LABS: Band Neutrophils % (manual) 0; Basophils % (manual) 0 (0.0-2.0); Blast Cells 0; Eosinophils % (manual) 0 (0-7); Metamyelocytes % 0; Myelocytes % 0; Promyelocytes % 0; Reactive Lymphocytes 0
[2024-05-06 10:44] LABS: Anisocytosis Slight; Lymphocytes % (manual) 14 (10.0-50.0); Monocytes % (manual) 8 (0-12); Platelet Estimate Decreased
[2024-05-06] MEDS: POTASSIUM EFFERVESENT TAB 25 MEQ PO ONE (12:12)
[2024-05-06] MEDS ORDERED: DEXTROSE (50%) 50ML SYRG IV PRN (13:00)
--- NOTE | 2024-05-06 13:52 | DVHPN2 ---
Subjective Patient denies any symptoms. Reviewed: Care Plan, H&P, Labs, Medications Changes from previous H/P or p: No Changes General: Per HPI Eyes: No Pain, No Vision change, No Conjunctivae inflammation, No Eyelid inflammation, No Other, No Redness ENT: No Ear pain, No Ear discharge, No Nose pain, No Nose discharge, No Nose congestion, No Mouth pain, No Mouth swelling, No Throat pain, No Throat swelling, No Other Respiratory: No Cough, No Dry, No Shortness of breath, No SOB with excertion, No Wheezing, No Hemoptysis, No Pleuritic Pain, No Sputum, No Other Gastrointestinal: No Nausea, No Vomiting, No Abdominal Pain, No Diarrhea, No Constipation; Melena; No Hematochezia, No Other Genitourinary: No Dysuria, No Frequency, No Incontinence, No Hematuria, No Retention, No Other Musculoskeletal: leg pain Skin: Other (Right lower extremity wound) Objective Vitals Vital Signs Date Time Temp Pulse Resp B/P (MAP) Pulse Ox O2 Delivery O2 Flow Rate FiO2 05/06/24 10:17 58 130/70 05/06/24 09:00 97.9 16 100 97.9 05/06/24 08:10 Room Air* 0 21 Intake/Output Intake and Output 05/06/24 07:00 Intake Total 3450 ml Output Total 200 ml Balance 3250 ml Intake Oral 300 ml IV Total 1050 ml Blood Product 1200 ml Other 900 ml Output Urine Total 200 ml General Appearance: Alert, Oriented X3, Cooperative, No acute distress HEENT: Atraumatic, PERRLA Lungs: Clear to auscultation, Normal air movement Cardiovascular: Normal S1, Normal S2 Abdomen: Normal bowel sounds, Soft Genitourinary: No Apparent Abnormalities Musculoskeletal: Normal sensory function, Normal motor function Neuro: Normal speech Psych/Mental Status: Mental status NL, Mood NL Medications Current Medications Medications Dose Ordered Sig/Raulito Route Start Time Stop Time Status Last Admin Dose Admin Nitroglycerin 0.4 mg Q5MINP PRN SL 05/05/24 16:00 Morphine Sulfate 2 mg Q30M PRN IV 05/05/24 16:00 Vancomycin HCl 0 ml @ 0 mls/hr UD IV 05/05/24 16:00 Ceftriaxone Sodium 50 ml @ 100 mls/hr DAILY@09 IV 05/06/24 09:00 05/06/24 09:18 100 MLS/HR Pantoprazole Sodium 40 mg BID IV 05/05/24 22:00 05/06/24 09:18 40 MG Acetaminophen/ Hydrocodone Bitart 1 tab Q8HP PRN PO 05/05/24 20:30 05/06/24 10:15 1 TAB Labetalol HCl 10 mg Q2HPRN PRN IV 05/06/24 08:00 05/06/24 09:17 10 MG Diagnostic Test (Pha) 1 strip ACHS 05/06/24 17:00 Insulin Human Regular HS SC 05/06/24 22:00 Insulin Human Regular AC SC 05/06/24 17:00 Dextrose 50 ml UD PRN IV 05/06/24 13:00 Laboratory Results Laboratory Tests 05/06/24 06:08 05/06/24 08:52 Chemistry Test 05/06/24 06:08 Albumin 2.6 g/dL (3.2-4.8) L Calcium Level 8.1 mg/dL (8.7-10.4) L Total Protein 5.8 g/dL (5.7-8.2) Coagulation Test 05/06/24 08:52 Prothrombin Time 14.9 sec (9.3-11.8) H Prothrombin Time INR 1.46 (0.9-1.15) H Activated Partial Thromboplast Time 27.1 SEC (24.5-34.5) LFT Test 05/06/24 06:08 Alanine Aminotransferase (ALT) 197 U/L (7-40) H Alkaline Phosphatase 209 U/L (46-116) H Aspartate Amino Transferase (AST) 285 U/L (13-40) H Total Bilirubin 1.9 mg/dL (0.2-1.0) H Labs and/or images reviewed: Labs reviewed by me, Image(s) reviewed by me Assessment/Plan Assessment/Plan Impression: -GI bleed, severe anemia -thrombocytopenia -right lower extremity cellulitis/abscess -cirrhosis of liver -primary hypertension -diabetes mellitus -hypokalemia -moderate protein malnutrition -probable acute kidney injury, vasomotor nephropathy Plan: -events: No events overnight. Hemoglobin now 9.0. No signs of active bleeding. -GI consultation : Recommendations reviewed -patient made NPO by GI -CT scan of right lower extremity : Reviewed -antibiotic therapy: Rocephin, vancomycin -regular insulin sliding scale -PPI -stool for occult blood -repeat labs in a.m. Total time spent with patient discussing and formulating plan of care: 35 minutes. This medical document was created using an electronic medical record system with [employer] dictation system. Although this document has been carefully reviewed, there may still be some phonetic and typographical errors. These areas are purely typographical due to imperfections of the software programs, and do not reflect any compromise in the patient's medical care. Plan discussed with: Patient, Other (RN) My Orders Orders - MUSTAPHA JOHNSON WINDERMAN Procedure Category Date Status Time Admit ADMIT 05/05/24 Transmitted 16:00 Nitroglycerin PHA 05/05/24 In Process Sublingual (Ntrostat 16:00 Morphine Sulfate PHA 05/05/24 In Process Injection 16:00 Stat Ekg For Chest MIKKI 05/05/24 In Process Pain 16:00 Notify Md Of Changes MIKKI 05/05/24 In Process From Base 16:00 Editorial Manager For MIKKI 05/05/24 In Process 24 Hours 16:00 Emergency Dysrhythmia MIKKI 05/05/24 In Process Protocol 16:00 Rhythm Strips Once MIKKI 05/05/24 In Process Every Shift 16:00 Oxygen By Nasal RT 05/05/24 Transmitted Cannula 16:00 Vancomycin Per PHA 05/05/24 In Process Pharmacy 16:00 Ceftriaxone 1gm/50ml PHA 05/06/24 In Process D5w (Rocephin) 09:00 Obtain Consent For: ORDERS 05/05/24 Transmitted 16:00 Pantoprazole PHA 05/05/24 In Process (Protonix) 22:00 * Gi Dvh Electrodynamicist CONS 05/05/24 Transmitted 16:00 Wound Culture W/ Gs DANNY 05/05/24 In Process 16:00 Blood Culture DANNY 05/05/24 In Process 16:00 Drug Screen LAB 05/05/24 Logged 16:00 * Wound Consult CONS 05/05/[address] R Tib Fib Wo CT 05/05/24 Resulted Contrast 16:00 Labetalol Hcl PHA 05/06/24 In Process (Labetalol Hcl) 08:00 Complete Blood Count LAB 05/07/24 Verified 04:00 Comprehensive LAB 05/07/24 Verified Metabolic Panel 04:00 Magnesium LAB 05/07/24 Verified 04:00 Glucose Blood PHA 05/06/24 In Process (Accu-Chek Comfort 17:00 Insulin R (Human) PHA 05/06/24 In Process (Insulin R) 22:00 Insulin R (Human) PHA 05/06/24 In Process (Insulin R) 17:00 Dextrose 50% Syringe PHA 05/06/24 In Process 13:00 Date of Service: May 06, 2024 Billing Provider: MUSTAPHA JOHNSON NP Common Visit Codes: [id number] INP/OBS CARE(HIGH) MUSTAPHA JOHNSON NP May 06, 2024 13:52
[2024-05-06] MEDS ORDERED: fentaNYL CITRATE 100 MCG/2 ML VL ONE (14:15)
[2024-05-06] MEDS ORDERED: MIDAZOLAM HCL 2MG/2ML 2ml VIAL (1mg/ml) ONE (14:15)
[2024-05-06] MEDS ORDERED: LIDOCAINE VISCOUS 2% 15ML UD ONE (14:19)
--- NOTE | 2024-05-06 14:24 | DVHOP2 ---
Operative Report DATE OF OPERATION: 05/06/24 PROCEDURE: Upper Endoscopy with biopsy PREOPERATIVE INDICATION: The patient is a 69 -year-old male undergoing endoscopy for anemia and melena POSTOPERATIVE DIAGNOSES: 1. Patient had a 2 cm sliding-type hiatal hernia with irregular squamocolumnar junction grade B erosive esophagitis and a distal esophageal ulcer at the 3 o'clock position 2. Mild portal hypertension gastropathy 3. Pqgw-[id number]-gqiwlyqn gastroduodenitis with superficial erosions 4. No esophageal varices and no fresh or old blood in the stomach except for increase oozing from biopsy sites otherwise normal examination up to the 2nd and 3rd part of the duodenum PROCEDURE PERFORMED BY: Oneida Ghotra GI NURSE: Christin SCOPE: Olympus videoendoscope. ASA CLASS: 3. PREOPERATIVE MEDICATIONS: Dr. Janet Tidwell PROCEDURE IN DETAIL: After obtaining an informed consent, the patient was placed on left lateral decubitus position. The patient was then sedated with the above medications. A bite block was placed between his teeth. The endoscope was then passed through the oropharynx, into the esophagus, and through the stomach and pylorus up to the second and third part of the duodenum. The endoscope was then withdrawn. The 2nd and 3rd part of the duodenal was normal the duodenal bulb and postbulbar area showed duodenitis with superficial erosions. Duodenal biopsies were obtained. The pre-pyloric area and antrum showed gastritis with pre-pyloric antral gastric erosions. On retroflexion and straight on view the patient had mild portal hypertension gastropathy. Gastric biopsies were obtained. The endoscope was then withdrawn into the distal esophagus where the patient had a 2 cm sliding-type hiatal hernia with acute grade B erosive esophagitis There was a esophageal ulcer at the 3 o'clock position. Esophageal biopsies were obtained. The remaining distal and proximal esophagus and oropharynx were unremarkable There was no esophageal varices no fresh or old blood in the stomach except for increase oozing from biopsy sites The patient tolerated the procedure well without difficulty. COMPLICATIONS : None SPECIMENS: Duodenal biopsy Gastric biopsy Esophageal biopsies DISPOSITION: Transfer back to the floor Stable PLAN: 1. Await for biopsy result 2. Will place pt on Protonix 40 mg bid IV 3. Carafate 1 g p.o. 4 times a day 4. Resume GI soft diet advance as tolerated 5. DC aspirin NSAIDs smoking alcohol 6. Outpatient follow up with GI Services for ongoing management of his cirrhosis and liver disease ONEIDA GHOTRA MD May 06, 2024 14:24
[2024-05-06] MEDS ORDERED: ACCU-CHEK COMFORT CURVE STRIP VI SCH (17:00)
[2024-05-06] MEDS ORDERED: InsuLIN REG 1unit/0.01ml Soln (100units/ml) SC SCH ×2 (17:00→22:00)
[2024-05-06] MEDS: SUCRALFATE 1 GM/10 ML ORAL SUSP PO SCH (17:18)
[2024-05-07 01:00] VITALS: BP 159/88; PULSE 77; RESP 18; TEMP 98.1; O2SAT 100
[2024-05-07 08:00] VITALS: PULSE 65; PULSE 75; RESP 17; O2SAT 100
[2024-05-07 09:00] VITALS: BP 147/73; PULSE 75; RESP 17; TEMP 97.8; O2SAT 100
[2024-05-07 10:53] LABS: Basophils # (auto) 0 10 ^3/uL (0-0.2); Eosinophils # (auto) 0 10 ^3/uL (0-0.8); Hematocrit 26.8 % (41.0-53.0); Hemoglobin 8.8 g/dL (13.5-17.5); Lymphocytes # (auto) 0.7 10 ^3/uL (0.4-5.4); Lymphocytes % (auto) 9.8 % (10.0-50.0); Mean Corpuscular Hemoglobin 30.8 pg (28.0-32.0); Mean Corpuscular Hgb Conc. 32.8 g/dL (32.0-36.0); Monocytes # (auto) 0.3 10 ^3/uL (0-1.3); Monocytes % (auto) 4.5 % (0.0-12.0); Neutrophils # (auto) 6.2 10 ^3/uL (1.6-8.6); Neutrophils % (auto) 85.7 % (37.0-80.0); Nucleated Red Blood Cells % 0.2 %; Platelet Count (auto) 103 10^3/uL (140-450); Red Blood Cells 2.85 10^6/uL (4.5-5.90); Red Cell Distribution Width 19.7 % (11.8-14.3); White Blood Cell 7.3 10^3/uL (4.4-10.8)
[2024-05-07 11:13] LABS: Anion Gap 10 (5-15); BUN/Creatinine Ratio 35.1 (10.0-20.0); Magnesium 2.3 mg/dL (1.6-2.6); Potassium 3.5 mmol/L (3.5-5.1); Sodium 137 mmol/L (136-145)
[2024-05-07 11:15] LABS: Total Protein 5.9 g/dL (5.7-8.2)
[2024-05-07 11:16] LABS: Alanine Aminotransferase 159 U/L (7-40); Albumin 2.6 g/dL (3.2-4.8); Alkaline Phosphatase 226 U/L (46-116); Aspartate Aminotransferase 156 U/L (13-40); Bilirubin, Total 1.3 mg/dL (0.2-1.0); Blood Urea Nitrogen 33 mg/dL (9-23); Calcium 8.1 mg/dL (8.7-10.4); Carbon Dioxide 18 mmol/L (20-31); Chloride 109 mmol/L (98-107); Glucose 224 mg/dL (74-106)
--- NOTE | 2024-05-07 11:29 | DVHDS2 ---
Discharge Summary Date of Admission May 05, 2024 at 16:00 Date of Discharge: May 07, 2024 Admitting Diagnosis GI bleed with severe anemia Labs/Diagnostic Data: Laboratory Results Test 05/07/24 10:17 05/06/24 17:15 05/06/24 08:52 05/05/24 17:00 White Blood Count 7.3 10^3/uL (4.4-10.8) Red Blood Count 2.85 10^6/uL (4.5-5.90) Hemoglobin 8.8 g/dL (13.5-17.5) Hematocrit 26.8 % (41.0-53.0) Mean Corpuscular Volume 94.0 fL (80.0-100.0) Mean Corpuscular Hemoglobin 30.8 pg (28.0-32.0) Mean Corpuscular Hemoglobin Concent 32.8 g/dL (32.0-36.0) Red Cell Distribution Width 19.7 % (11.8-14.3) Platelet Count 103 10^3/uL (140-450) Mean Platelet Volume 10.3 fL (6.9-10.8) Neutrophils (%) (Auto) 85.7 % (37.0-80.0) Lymphocytes (%) (Auto) 9.8 % (10.0-50.0) Monocytes (%) (Auto) 4.5 % (0.0-12.0) Eosinophils (%) (Auto) 0.0 % (0.0-7.0) Basophils (%) (Auto) 0.0 % (0.0-2.0) Neutrophils # (Auto) 6.2 10 ^3/uL (1.6-8.6) Lymphocytes # (Auto) 0.7 10 ^3/uL (0.4-5.4) Monocytes # (Auto) 0.3 10 ^3/uL (0-1.3) Eosinophils # (Auto) 0 10 ^3/uL (0-0.8) Basophils # (Auto) 0 10 ^3/uL (0-0.2) Nucleated Red Blood Cells 0.2 % Sodium Level 137 mmol/L (136-145) Potassium Level 3.5 mmol/L (3.5-5.1) Chloride Level 109 mmol/L (98-107) Carbon Dioxide Level 18 mmol/L (20-31) Anion Gap 10 (5-15) Blood Urea Nitrogen 33 mg/dL (9-23) Creatinine 0.94 mg/dL (0.700-1.30) Glomerular Filtration Rate Calc 87 mL/min (>90) BUN/Creatinine Ratio 35.1 (10.0-20.0) Serum Glucose 224 mg/dL (74-106) Calcium Level 8.1 mg/dL (8.7-10.4) Magnesium Level 2.3 mg/dL (1.6-2.6) Total Bilirubin 1.3 mg/dL (0.2-1.0) Aspartate Amino Transferase (AST) 156 U/L (13-40) Alanine Aminotransferase (ALT) 159 U/L (7-40) Alkaline Phosphatase 226 U/L (46-116) Total Protein 5.9 g/dL (5.7-8.2) Albumin 2.6 g/dL (3.2-4.8) Random Vancomycin Level 4.7 ug/mL (5-10) Hemoglobin A1c 4.8 % A1C (<5.7) Differential Total Cells Counted 100.0 (100) Neutrophils % (Manual) 78 (37.0-80.0) Band Neutrophils % (Manual) 0 Lymphocytes % (Manual) 14 (10.0-50.0) Monocytes % (Manual) 8 (0-12) Eosinophils % (Manual) 0 (0-7) Basophils % (Manual) 0 (0.0-2.0) Metamyelocytes % (manual) 0 Myelocytes % (Manual) 0 Promyelocytes % (Manual) 0 Blast Cells % (Manual) 0 Reactive Lymphocytes 0 Platelet Estimate Decreased Anisocytosis (manual) Slight Prothrombin Time 14.9 sec (9.3-11.8) Prothrombin Time INR 1.46 (0.9-1.15) Activated Partial Thromboplast Time 27.1 SEC (24.5-34.5) Reticulocyte Count (auto) 6.91 % (0.5-1.5) Iron Level 21 ug/dL (65-175) Total Iron Binding Capacity 338 ug/dL (250-425) Percent Iron Saturation 6.2 % (20-55) Ferritin 60.6 ng/mL (22-322) Lactate Dehydrogenase 413 U/L (120-246) Vitamin B12 Level 1965 pg/mL (211-911) Folic Acid 17.52 ng/mL (>5.38) Test 05/05/24 12:18 05/05/24 11:01 Hypochromasia (manual) Moderate Target Cells Moderate Tear Drop Cells Few Troponin I High Sensitivity 54 ng/L (</=54) Other Laboratory Tests 05/07/24 10:17 Brief Hx & Hospital Course: History of Present Illness The patient was a 69-year-old male presenting to the emergency room with complaints of wound to his right lower extremity, dizziness, near-syncope, as well as generalized weakness. Patient also reports having melena stools for the past 3-4 days. Significant history of the patient includes cirrhosis, diabetes mellitus, illicit drug use, alcoholism, as well as primary hypertension. Course of hospitalization: Patient received 2 units PRBCs. Patient underwent EGD, with no findings of active bleeding. Postoperative findings with the following: POSTOPERATIVE DIAGNOSES: 1. Patient had a 2 cm sliding-type hiatal hernia with irregular squamocolumnar junction grade B erosive esophagitis and a distal esophageal ulcer at the 3 o'clock position 2. Mild portal hypertension gastropathy 3. Ggft-za-fpshnerm gastroduodenitis with superficial erosions 4. No esophageal varices and no fresh or old blood in the stomach except for increase oozing from biopsy sites otherwise normal examination up to the 2nd and 3rd part of the duodenum Patient was continued on PPI and Carafate. His diet has been advanced. Wound care was provided to his right lower extremity. CT scan was performed without any signs of abscess or osteomyelitis. Patient was continued on antibiotic therapy with vancomycin and Rocephin. He has been cleared for discharge from GI. Patient will be continued on antibiotic therapy with clindamycin 300 mg p.o. t.i.d. for seven days as well as a probiotic daily. Home health services will be provided to the patient. He will continue all previous home medications. Patient will also be prescribed Protonix 40 mg p.o. b.i.d. as well as Carafate 1 g p.o. b.i.d. for the next 30 days. He will follow up with his PCP, methadone clinic, and GI doctor in 2-3 weeks. Physical examination General: Alert and Oriented x3. No acute distress. Well-nourished. Eyes: EOMI. Anicteric. HENT: Moist mucous membranes. Lungs: Clear to auscultation bilaterally. No accessory muscle use. Cardiovascular: Regular rate and rhythm. No murmur. No JVD. Abdomen: Soft, non-tender and non-distended. No palpable masses. Extremities: No edema. Non-tender. Skin: No rashes or lesions. Warm. Neurologic: No focal neurological deficits. CN II-XII grossly intact, but not individually tested. Psychiatric: Cooperative. Appropriate mood and affect. Total time spent with patient discussing and formulating plan of care: 35 minutes. This medical document was created using an electronic medical record system with [employer] system. Although this document has been carefully reviewed, there may still be some phonetic and typographical errors. These areas are purely typographical due to imperfections of the software programs, and do not reflect any compromise in the patient's medical care. Consults/Reason for consult Gastroenterology: GI bleed Operations or Procedures 05/06/2024: EGD Condition at Discharge: Guarded Final Diagnosis/Problems List GI bleed Right lower extremity cellulitis Secondary diagnosis: -GI bleed, severe anemia -thrombocytopenia -right lower extremity cellulitis/abscess -cirrhosis of liver -primary hypertension -diabetes mellitus -hypokalemia -moderate protein malnutrition -probable acute kidney injury, vasomotor nephropathy Discharge Disposition: Home with Health Services Discharge Instruct/Medications Diet: Cardiac 2g Na,low cholest Activity: No Restrictions, As Tolerated Follow Up/Referral: Follow up with PCP in 1-[address] Ghotra in 2-3 weeks Medications: Clindamycin 300 mg p.o. q.8 hours for 10 days Florastor 250 mg p.o. daily Protonix 40mg po bid x 30 days Carafate 1 gm po bid x 30 days Continue all home medications. 36 Discharge Statement: "Patient was advised to return to the ER or call 911 if any headaches, dizziness, shortness of breath, chest pain, abdominal pain, bleeding, fevers, or worsening of medical condition. Patient was counseled about treatment plan, medications, possible side effects, patientverbalized understanding. All questions were answered to the best of my ability. This discharge took greater then 30 minutes in planning, reviewing documentation, counseling the patient, and discussing with other team members." ASSESSMENT ASSESSMENT Assessment GI bleed Right lower extremity cellulitis Date of Service: May 07, 2024 Billing Provider: MUSTAPHA JOHNSON NP Visit Codes: [id number] DISCH DAY >30min MUSTAPHA JOHNSON NP May 07, 2024 11:29
[2024-05-07] MEDS ORDERED: PANT40TA2 PO (11:34)
[2024-05-07] MEDS ORDERED: SUCR1TAB31 OR (11:34)
[2024-05-07] MEDS ORDERED: SACC250C PO (11:34)
[2024-05-07] MEDS ORDERED: CLIN1CAP70 PO (11:34)
--- NOTE | 2024-05-07 11:43 | DVHPN2 ---
Progress Note Date Seen: May 07, 2024 Resident Creating Document: GUNNER GUTIERREZ RESIDENT Medical Necessity Reason Pt with a Central, PICC or Fol: No Subjective Patient reports: No new complaints, Feels better Objective vital signs Vital Sign Date Time Temp Pulse Resp B/P (MAP) Pulse Ox O2 Delivery O2 Flow Rate FiO2 05/07/24 09:00 97.8 75 17 147/73 (97) 100 97.8 05/06/24 20:00 Room Air* 0 21 Total Intake and Output 05/06/24 05/06/24 05/07/24 15:00 23:00 07:00 Intake Total 150 ml 400 ml 550 ml Output Total 700 ml 600 ml Balance 150 ml -300 ml -50 ml medications Current Medications Medications Dose Ordered Sig/Raulito Route Start Time Stop Time Status Last Admin Dose Admin Nitroglycerin 0.4 mg Q5MINP PRN SL 05/05/24 16:00 Morphine Sulfate 2 mg Q30M PRN IV 05/05/24 16:00 Vancomycin HCl 0 ml @ 0 mls/hr UD IV 05/05/24 16:00 Ceftriaxone Sodium 50 ml @ 100 mls/hr DAILY@09 IV 05/06/24 09:00 05/07/24 09:30 100 MLS/HR Pantoprazole Sodium 40 mg BID IV 05/05/24 22:00 05/07/24 09:30 40 MG Acetaminophen/ Hydrocodone Bitart 1 tab Q8HP PRN PO 05/05/24 20:30 05/07/24 04:50 1 TAB Labetalol HCl 10 mg Q2HPRN PRN IV 05/06/24 08:00 05/06/24 09:17 10 MG Sucralfate 1 gm QID@0600,1130,1700,2200 PO 05/06/24 17:00 05/07/24 05:50 1 GM Hydromorphone HCl 4 mg Q6HP PRN PO 05/07/24 10:30 UNV Examination: GENERAL:Normal, HEENT:Normal, NECK:Normal, LUNGS:Normal, CVS:Normal, ABDOMEN:Normal, MSK:Normal, NEURO:Normal laboratory and microbiology Laboratory Tests 05/07/24 10:17 Test 05/07/24 10:17 Range/Units Serum Glucose 224 #H 74-106 mg/dL Microbiology Date/Time Source Procedure Growth Status 05/06/24 11:00 Leg Gram Stain Pending Resulted 05/06/24 11:00 Leg Wound Culture - Preliminary Resulted 05/05/24 17:00 Blood Blood Culture - Preliminary NO GROWTH AFTER 24 HOURS OF INCUBATION. Resulted Problem List/Assessment/Plan Problem List/Assessment/Plan Erosive esophagitis and distal esophageal Nkio-bj-ozhywytk gastroduodenitis Right lower extremity cellulitis Liver cirrhosis Hepatic encephalopathy Plan/recommendation DATE OF OPERATION: 05/06/24 PROCEDURE: Upper Endoscopy with biopsy POSTOPERATIVE DIAGNOSES: 1. Patient had a 2 cm sliding-type hiatal hernia with irregular squamocolumnar junction grade B erosive esophagitis and a distal esophageal ulcer at the 3 o'clock position 2. Mild portal hypertension gastropathy 3. Vuhu-aj-zayzjixc gastroduodenitis with superficial erosions 4. No esophageal varices and no fresh or old blood in the stomach except for increase oozing from biopsy sites otherwise normal examination up to the 2nd and 3rd part of the duodenum Recommendation 1. Await for biopsy result 2. Will place pt on Protonix 40 mg bid IV, can transition to p.o. 3. Carafate 1 g p.o. 4 times a day 4. Resume GI soft diet advance as tolerated 5. DC aspirin NSAIDs smoking alcohol 6. Outpatient follow up with GI Services for ongoing management of his cirrhosis and liver disease and colonoscopy. -Patient has been discharged today, continuing Protonix 40 mg p.o. twice daily and Carafate 1 g p.o. 4 times daily. Follow with outpatient setting for results of biopsy and chronic management of liver cirrhosis and colonoscopy. Plan discussed with: Patient, Other (RN) CC Plasma Assessment Blood Product Administration S: 2250 GUNNER GUTIERREZ RESIDENT May 07, 2024 11:43
[2024-05-07 12:08] VITALS: BP 147/73; PULSE 75; RESP 17; TEMP 97.8; O2SAT 100
[2024-05-07 13:00] VITALS: BP 133/84; PULSE 59; RESP 17; TEMP 97.7; O2SAT 99
[2024-05-07] MEDS: HYDROmorphone HCL 2 MG TAB PO PRN (13:23)
[2024-05-07] MEDS: VANCOMYCIN 750MG KIT 100 ML IV SCH (17:00)
== END 2024-05-07 20:10 | disposition home health service (06) | DRG 380 ==
LOC: EDBD 10:08 → ER 10:08 → OVERFLOW 16:00 → TELE-CENTR 23:26
PROVIDERS: ADMIT Nurse Practitioner Acute Care; ATTEND Nurse Practitioner Acute Care
PROC: 30233N1 Transfusion of Nonautologous Red Blood Cells into Peripheral Vein, Percutaneous Approach (ICD-10-PCS; 2024-05-05)
PROC: 0DB98ZX Excision of Duodenum, Via Natural or Artificial Opening Endoscopic, Diagnostic (ICD-10-PCS; 2024-05-06)
PROC: 0DB68ZX Excision of Stomach, Via Natural or Artificial Opening Endoscopic, Diagnostic (ICD-10-PCS; 2024-05-06)
PROC: 0DB18ZX Excision of Upper Esophagus, Via Natural or Artificial Opening Endoscopic, Diagnostic (ICD-10-PCS; principal; 2024-05-06 14:10)
DX: K22.11 Ulcer of esophagus with bleeding (principal); K85.90 Acute pancreatitis without necrosis or infection, unspecified; N17.0 Acute kidney failure with tubular necrosis; L03.115 Cellulitis of right lower limb; E44.0 Moderate protein-calorie malnutrition; K76.6 Portal hypertension; R18.8 Other ascites; R71.0 Precipitous drop in hematocrit; K25.4 Chronic or unspecified gastric ulcer with hemorrhage; K29.71 Gastritis, unspecified, with bleeding; K29.81 Duodenitis with bleeding; K29.91 Gastroduodenitis, unspecified, with bleeding; K76.82 Hepatic encephalopathy; D69.6 Thrombocytopenia, unspecified; K74.60 Unspecified cirrhosis of liver; E87.6 Hypokalemia; K44.9 Diaphragmatic hernia without obstruction or gangrene; N18.9 Chronic kidney disease, unspecified; F17.210 Nicotine dependence, cigarettes, uncomplicated; K82.8 Other specified diseases of gallbladder; I12.9 Hypertensive chronic kidney disease with stage 1 through stage 4 chronic kidney disease, or unspecified chronic kidney disease; E11.22 Type 2 diabetes mellitus with diabetic chronic kidney disease; K31.9 Disease of stomach and duodenum, unspecified; Z79.899 Other long term (current) drug therapy; Z68.23 Body mass index [BMI] 23.0-23.9, adult; Z79.4 Long term (current) use of insulin
CPT/HCPCS: 36415; 36430; 71045; 73700; 80048; 80053; 80202; 82607; 82728; 82746; 83036; 83540; 83550; 83615; 83735; 84484; 85007; 85025; 85027; 85045; 85610; 85730; 86850; 86900; 86901; 86920; 87040; 87077; 87186; 87205; 96365; 96367; G0378; J2250; J2470; J3490